=== PATIENT | male | born 1965 | race African-American/Black ===

== ENCOUNTER 2019-08-16 13:13 | Day surgery (SDC) ==
[2019-08-16] MEDS ORDERED: KEFZOL 1 GM/D5W 2 GM/100 ML IVPB ONE (13:45)
[2019-08-16] MEDS ORDERED: LR 1,000 ML ONE ×2 (13:45→18:28)
[2019-08-16] MEDS ORDERED: NEO SYNEPHRINE INJ ONE (14:20)
[2019-08-16] MEDS ORDERED: SODIUM CHLORIDE 0.9% INJ ONE (14:20)
[2019-08-16] MEDS ORDERED: DIPRIVAN 1% ONE (15:54)
[2019-08-16] MEDS ORDERED: XYLOCAINE-MPF 2% ONE (15:54)
[2019-08-16] MEDS ORDERED: ROBINUL ONE ×2 (15:54→16:47)
[2019-08-16] MEDS ORDERED: XYLOCAINE 1% ONE (16:00)
[2019-08-16] MEDS ORDERED: APRESOLINE ONE ×2 (16:27→18:18)
[2019-08-16] MEDS ORDERED: LABETALOL ONE (17:32)
[2019-08-16] MEDS ORDERED: DILAUDID ONE (17:35)
[2019-08-16] MEDS ORDERED: NORCO-7.5 ONE (17:49)
[2019-08-16] MEDS ORDERED: APRESOLINE IV PRN (18:20)
[2019-08-16] MEDS ORDERED: LABETALOL IV PRN (19:00)
[2019-08-16] MEDS ORDERED: ZOFRAN IV PRN (19:00)
[2019-08-16 22:16] LABS: BASO# 0.02 X1000 (0.0-0.2); BASO% 0.2 % (0.0-0.8); EOS# 0.07 X1000 (0.0-0.7); EOS% 0.6 % (0.0-10.0); HEMATOCRIT 41.9 % (42.0-52.0); HEMOGLOBIN 13.8 g/dL (14.0-18.0); IMM GRAN# 0.02 X1000 (0.0-0.04); IMM GRAN% 0.2 % (0.0-0.5); LYMPH# 0.62 X1000 (1.2-3.4); LYMPH% 5.6 % (20.5-51.1); MCHC 32.9 g/dL (33-37); MCV 85.2 FL (81-99); MONO% 6.3 % (1.7-9.3); MPV 9.6 FL (7.4-10.4); NEUT# 9.65 X1000 (1.4-6.5); NEUT% 87.1 % (42.2-75.2); PLT 240 X1000 (130-400); RBC 4.92 XMIL (4.7-6.1); RDW 12.5 % (11.5-14.5); WBC 11.08 X1000 (4.8-10.8)
[2019-08-16 22:32] LABS: AGAP 14; ALB/GLOB RATIO 1.3; ALBUMIN 3.9 g/dL (3.5-5.0); ALKALINE PHOSPHATASE 99 U/L (32-122); BUN 11 mg/dL (8-22); CHLORIDE 102 mmol/L (98-107); COSMO 280; CREATININE 1.1 mg/dL (0.7-1.2); ESTIMATED GFR > 60; GLUCOSE 92 mg/dL (70-104); GOT 22 U/L (10-34); GPT 22 U/L (10-44); POTASSIUM 3.6 mmol/L (3.5-5.1); SODIUM 141 mmol/L (136-145); TCO2 25 mmol/L (25-35); TOTAL BILIRUBIN 0.46 mg/dL (0.20-1.00); TOTAL PROTEIN 6.9 g/dL (6.3-8.3)
[2019-08-16 22:52] LABS: PROTIME 13.9 Seconds (11.0-16.0); PTT 25.2 Seconds (22.3-41.8)
[2019-08-16 22:53] LABS: INR 1.05
[2019-08-16 22:59] LABS: EOS 2 % (1-10); LYMPHS 4 % (21-51); MONO 6 % (1-9); SEGS 88 % (42-75)
[2019-08-16] MEDS: KEFZOL 1 GM/D5W 1 GM/50 ML IVPB IV SCH (23:15)
[2019-08-16] MEDS: COLACE PO SCH (23:15)
[2019-08-17] MEDS: NORCO-7.5 PO PRN (00:01)
[2019-08-17 01:45] LABS: URINE SOURCE CATH
[2019-08-17 01:50] LABS: BILIRUBIN URINE NEGATIVE (NEGATIVE); BLOOD URINE MODERATE (NEGATIVE); COLOR YELLOW; GLUCOSE URINE NEGATIVE (NEGATIVE); KETONE URINE TRACE mg/dL (NEGATIVE); LEUKOCYTES URINE LARGE (NEGATIVE); NITRITE URINE NEGATIVE (NEGATIVE); PH URINE 6.5; PROTEIN URINE 70 mg/dL (NEGATIVE); SP GRAVITY URINE 1.025; TURBIDITY URINE HAZY (CLEAR); UROBILINOGEN URINE NORMAL (NORMAL)
[2019-08-17 02:21] LABS: UR EPITHELIAL CELLS <10 /HPF (<10); URINE BACTERIA NEGATIVE /HPF; URINE CASTS NONE SEEN; URINE CRYSTALS NONE SEEN; URINE RBC 20-40 /HPF (<10); URINE SMALL ROUND CELLS NONE SEEN; URINE WBC TNTC /HPF (<10); URINE YEAST NONE SEEN
[2019-08-17 07:09] LABS: HEMATOCRIT 38.7 % (42.0-52.0); HEMOGLOBIN 12.7 g/dL (14.0-18.0); MCH 28.3 PG (27-31); MCHC 32.8 g/dL (33-37); MCV 86.2 FL (81-99); MPV 10.1 FL (7.4-10.4); RBC 4.49 XMIL (4.7-6.1); RDW 12.7 % (11.5-14.5); WBC 8.04 X1000 (4.8-10.8)
[2019-08-17 07:35] LABS: AGAP 11; BUN 13 mg/dL (8-22); CALCIUM 8.5 mg/dL (8.8-10.2); CHLORIDE 102 mmol/L (98-107); COSMO 276; CREATININE 1.3 mg/dL (0.7-1.2); ESTIMATED GFR > 60; GLUCOSE 105 mg/dL (70-104); POTASSIUM 3.7 mmol/L (3.5-5.1); SODIUM 138 mmol/L (136-145); TCO2 25 mmol/L (25-35)
--- NOTE | 2019-08-17 07:42 | OPERATIVE NOTE ---
PROCEDURE DATE: 08/16/2019 PREOPERATIVE DIAGNOSES: 1. High-flow priapism. 2. History of urethral stricture. POSTOPERATIVE DIAGNOSES: 1. High-flow priapism. 2. History of urethral stricture. PROCEDURE PERFORMED: 1. Urethroscopy. 2. Irrigation and drainage of priapism. 3. Irrigation of phenylephrine. SURGEON: Yunior Rojas MD. ELIGIBILITY COUNSELOR: None. COMPLICATIONS: None. BLOOD LOSS: 30 mL. DRAINS: None. SPECIMENS REMOVED: Arterial blood gas. ANESTHESIA: LMA. INDICATIONS FOR PROCEDURE: Mr. Jiménez is a 53-year-old who presented to [facility] with a history of urethral stricture disease. The patient was taken to the operating room on 08/04/2019 for cystoscopy and attempted direct vision internal urethrotomy. The patient had a bulbar urethral stricture and several cuts of the urethrotome performed. However, the stricture was too obliterated and underwent suprapubic tube placement. The patient had significant bleeding from his urethra postoperatively, and was seen in [facility], and this has subsequently resolved. He was seen in the office last week and was doing well at that time. Last Thursday though, he began having swelling of his penis without pain. This persisted throughout the weekend and he presented to the office yesterday with evidence of priapism. There was no tenderness to palpation. He was sent for a penile ultrasound which showed good arterial flow and good superficial venous flow. There was slight delayed deep vein flow. I talked to him at that time regarding performing an ABG and possible drainage of priapism. The patient was without any pain, and from his symptoms, it sounded like he had high-flow priapism. I recommended obtaining an ABG, and injected phenylephrine and trying to do irrigation and drainage of his priapism. I told him that with his history of likely high-flow, the irrigation drainage would not completely alleviate it, and that if it persists, we may have to consider embolization. Discussed with him the role of cystoscopy to evaluate the urethra, and see if there is any active bleeding present. Discussed risks including bleeding, infection, damage to surrounding structures, prolonged erectile dysfunction related to prolonged priapism as well as drainage. After thorough discussion of the risks, benefits, and alternatives, patient elected to proceed. DESCRIPTION OF PROCEDURE: After informed consent was obtained, the patient was brought to the operating room, and placed on the operating table in supine position. The patient received preoperative antibiotics and underwent LMA placement. He was shaved, and then prepped and draped in usual sterile fashion. A preoperative time-out was performed with all parties in agreement, including anesthesia, surgical, and nursing staff. At which point using a flexible cystourethroscope inserted through the urethra which showed a normal urethra until what appeared to be the bulbar urethra. No significant trauma was seen within the urethra. No active bleeding was seen. It seemed like the stricture remained significantly unchanged from prior evaluation. At which point the cystourethroscope was removed, and no active bleeding was seen. The patient had a slight decrease in the firmness of his penis after induction of anesthesia. His blood pressure at that time was 130/78. He continued to have firm corpora, but it seemed to be less firm. Gave him a penile block at the base of the penis. Next, used ABG needle and placed into the base of the left penis. Send this for ABG, which returned with a pH of 7.358, pCO2 of 48.2, PO2 of 99, base excess of 2, bicarbonate of 27.1, and oxygen saturation of 97% showing evidence of normal arterial flow and high-flow priapism. I did drain some blood through an 18-gauge needle, and the patient's penis became rapidly flaccid. I injected a small amount of phenylephrine starting with 1 mL increments using concentration of 100 mcg/mL, and injected 3 total mL of phenylephrine over a 15 minute period. The patient's penis remained flaccid. I removed the needle, and no active bleeding was seen after holding pressure for several minutes. The patient was monitored for 10 minutes in the operating room with no return of his priapism. A dressing was then placed using Kerlix and Coban for a small pressure dressing. This was used lightly to allow for any postoperative edema and swelling. The patient was then transferred to recovery room in stable condition. DISPOSITION: Patient will be monitored overnight. I think some of his high- flow priapism is related to hypertension. He was taking lisinopril and hydrochlorothiazide, within a week of the priapism starting. I am concerned this may have led to some of his symptoms. We will consult the hospitalist for assistance in monitoring his blood pressure, and optimization of medical management as he has new onset of hypertension, which I think is leading to his current episode of priapism. Blood pressure in recovery was 165/125 postoperatively, and no obvious erection was seen 20 minute after the procedure was completed. cc: Yunior Rojas MD MTDDario
[2019-08-17] MEDS: LR 1,000 ML IV SCH ×2 (08:02→23:20)
[2019-08-17] MEDS: PERIDEX MT SCH ×2 (08:03→20:22)
[2019-08-17] MEDS: COLACE PO SCH ×2 (08:03→20:22)
[2019-08-17] MEDS: KEFZOL 1 GM/D5W 1 GM/50 ML IVPB IV SCH ×2 (08:03→17:25)
--- NOTE | 2019-08-17 10:21 | Diag Imaging Result Doc PS360 ---
EXAM: CT ABDOMEN/PELVIS W/O CONTRAST INDICATION: Uncontrolled hypertension TECHNIQUE: This exam was performed using automated exposure control, adjustment of mA or kV according to patient size, and/or use of iterative reconstruction technique. COMPARISON: None. FINDINGS: There is mild subsegmental atelectasis at the lung bases. The gallbladder, liver, spleen, pancreas, adrenal and adrenal glands are grossly unremarkable. There are no renal or ureteral stones and there is no hydronephrosis. The kidneys are grossly unremarkable, otherwise. There is a suprapubic Mann catheter in the urinary bladder. The bladder is largely nondistended. There is urinary bladder wall thickening. This is probably due to incomplete distention and chronic thickening due to the indwelling catheter. Correlate clinically to exclude a component of acute cystitis. The appendix is normal. No bowel wall thickening or bowel obstruction is identified. The stomach is very distended containing fluid and debris. This is nonspecific. Consider delayed gastric emptying. The remainder of the GI tract is grossly unremarkable. There is a small umbilical hernia that contains only fat. No free abdominal gas or free fluid is appreciated. IMPRESSION: 1.Thickened urinary bladder wall that is probably due to nondistention and chronic thickening from the indwelling suprapubic catheter. Correlate clinically to exclude a component of cystitis. 2.Distended stomach containing fluid and debris, nonspecific. Consider delayed gastric emptying. 3.Other incidental/nonacute findings detailed above. Electronically signed by Eliazar Paiz 08/17/2019 10:18 AM
--- NOTE | 2019-08-17 11:40 | Diag Imaging Result Doc PS360 ---
EXAM: CHEST-PORTABLE HISTORY: Fine Crackles RLL TECHNIQUE: Single view COMPARISON: None. FINDINGS: The lungs are well expanded. The heart is not enlarged. The vessels are not distended. There are no infiltrates. No effusion identified. IMPRESSION: No pneumonia Electronically signed by Ivan Hooker 08/17/2019 11:38 AM
--- NOTE | 2019-08-17 11:42 | Diag Imaging Result Doc PS360 ---
EXAM: CERVICAL SPINE COMPLETE HISTORY: Neck Pain,Right Arm Numbness TECHNIQUE: AP and lateral with obliques, six views COMPARISON: None. FINDINGS: There is reversal of the normal curvature. Prominent degenerative bone spurs in the mid cervical spine with disc space narrowing with. No precervical soft tissue swelling. IMPRESSION: Reversal of the normal curvature with prominent degenerative changes in the mid cervical spine. Electronically signed by Ivan Hooker 08/17/2019 11:39 AM
--- NOTE | 2019-08-17 12:10 | PROGRESS NOTE ---
DATE: 08/17/2019 SUBJECTIVE: Postoperative day 1 from cystoscopy, irrigation and drainage of priapism with injection of phenylephrine. The patient has been doing well. He denies any penile pain. He remains afebrile. His blood pressures have been better controlled since admission. The patient is currently on IV labetalol and hydralazine. Nursing says they did not have to give him any overnight as his blood pressures were below parameters. The patient had a high-flow priapism yesterday and improved with blood pressure control. The patient continues to have a partial erection this morning. Denies any penile pain. He does feel like it has gotten slightly better since yesterday. PHYSICAL EXAMINATION: Vital Signs: Temperature 97.4 degrees, heart rate 63, blood pressure 131/86, oxygen saturation 100% on room air. General: No acute distress. Resting comfortably in bed. Alert and oriented x3. Respiratory: Good respiratory effort without audible wheezing or rales. : No suprapubic tenderness. Suprapubic tube in place, draining clear urine. No evidence of any scrotal edema. The patient has a partial erection, approximately 50%. Firm corpora that are nontender to palpation. The patient seems to have had improvement in priapism since yesterday. Denies any urethral bleeding. LABS: White blood cell count 8.0, hemoglobin 12.7, hematocrit 38.7, platelets 217,000. Sodium 138, potassium 3.7, chloride 102, bicarb 25, creatinine 1.3, glucose 105, calcium 8.5. ASSESSMENT AND PLAN: Mr. Jiménez is a 53-year-old who has a history of urethral stricture disease, is status post attempted direct vision internal urethrotomy on 08/04/2019, and placement of a suprapubic tube. The patient has had good drainage from the suprapubic tube catheter. The patient developed priapism last Thursday. He presented to clinic on Thursday with symptoms. He was denying any penile pain and only felt like he had some penile swelling. The patient has undergone a penile Doppler which showed good arterial blood supply with superficial venous drainage, with concern for a slow deep vein drainage. The patient was taken to the operating room yesterday for irrigation of priapism, phenylephrine injection, with cystoscopy. The patient's ABG showed good blood supply with oxygenation at 99% and a normal CO2. The patient seems to have evidence of a high-flow priapism. The patient's priapism improved with blood pressure control yesterday in the operating room and to continues to improve with better blood pressure control. I think some of this is related to elevated systolic and diastolic blood pressures. The patient has a hospitalist consult placed and they are evaluating him. The patient likely needs to be on blood pressure medications. I think this developed partly due to the lisinopril that he was taking previously. We will ask them to discuss possible options for blood pressure management. We will obtain a CT scan this morning to assess for any internal compression leading to hypertension and the priapism. Continue PO pain medications. cc: MD Tino Roberts MD MTDD
--- NOTE | 2019-08-17 16:45 | EKG Report ---
Test Performed on : 08/17/2019 4:34:15 PM Test Reason : HTN/chest pain Blood Pressure : / mmHG Vent. Rate : 070 BPM Atrial Rate : 070 BPM P-R Int : 240 ms QRS Dur : 092 ms QT Int : 372 ms P-R-T Axes : 028 -34 016 degrees QTc Int : 401 ms Sinus rhythm. with 1st degree AV block. Left axis deviation Pulmonary disease pattern Abnormal ECG No previous ECGs available Confirmed by Alexi MARCUS, Yung ([id number]) on 08/18/2019 8:36:07 AM
[2019-08-17] MEDS: NORVASC PO SCH (20:22)
--- NOTE | 2019-08-17 21:53 | CONSULTATION ---
DATE OF CONSULTATION: 08/17/2019 at 0530. PRIMARY CARE: Patient does not have a primary care provider. UROLOGIST: Dr. Rojas. REQUESTING PHYSICIAN: Dr. Rojas. REASON FOR CONSULT: Uncontrolled hypertension. HISTORY OF PRESENT ILLNESS: Mr. Oscar Jiménez is a 53-year-old male who has a past medical history most notable for hypertension, medullary sponge kidney, and urethral strictures. He did recently, on 08/04/2019, undergo a cystoscopy with attempted direct-vision internal urethrotomy and placement of a suprapubic catheter. He has, from what I understand, had some problems with urethral bleeding since that procedure. Yesterday, the patient did present to Dr. Rojas's office with complaints of priapism. Secondary to this, Dr. Rojas did take the patient to surgery for urethroscopy, irrigation and drainage of priapism, and irrigation of phenylephrine for high-flow priapism. Dr. Rojas did believe that this priapism could be secondary to uncontrolled hypertension. The patient states that a few months ago, he was given a prescription for lisinopril/hydrochlorothiazide, a blood pressure medication. He states he took this for a while, though his blood pressure did not improve. He stated prior to taking blood pressure medicine, his blood pressure continuously ran in the 180s systolically and the 120s diastolically. He states even with taking that blood pressure medicine, his blood pressure continued to stay the same, and when he began having the priapism, he thought that the blood pressure medicine might be causing this, so he stopped taking it. So far, since being admitted, his blood pressure at the highest had been 173/105, though he has received p.r.n. blood pressure medications of hydralazine and labetalol, and since that time his blood pressure has improved. The patient also reports that he has had neck pain for quite some time. He denies any known injury or any recent injury to his neck. He states that for a long time as well, he has had intermittent numbness in his right arm from the level of the shoulder down. He stated that when he turned his neck in certain directions, the numbness would get worse and improve, though he states now that his right arm stays numb almost continuously. He still has good muscle control. It is just the numbness that he is reporting. At this time, the only pain the patient is reporting is the pain in his lower abdomen in the suprapubic area. He just recently has had urological procedure performed. He denies any headache, dizziness, chest pain, shortness of breath, or cough. He denies any nausea, vomiting, or diarrhea. He denies any pain, numbness, tingling, or swelling in the extremities except for the previously mentioned right arm numbness that he has been reporting. The patient also did report that he does not have a primary care provider, and would like assistance with this if possible. REVIEW OF SYSTEMS: A 14 point review of systems was conducted with the patient and all were negative except for the pertinent positives mentioned above in HPI. PAST MEDICAL HISTORY: 1. Hypertension. 2. Medullary sponge kidney. 3. Priapism. 4. History of urethral stricture, status post cystoscopy and now suprapubic catheter placement just recently on 08/04/2019. 5. History of urinary retention. PAST SURGICAL HISTORY: 1. Cystoscopy with attempted direct-vision internal urethrotomy and suprapubic catheter placement on 08/04/2019. 2. Status post recent urethroscopy with irrigation and drainage of priapism and irrigation of phenylephrine by Dr. Rojas for treatment of a high-flow priapism and history of urethral stricture, on 08/16/2019. SOCIAL HISTORY: Patient denies any tobacco, alcohol, or illicit drug use. FAMILY HISTORY: Positive for asthma, hypertension, stroke, arthritis, diabetes mellitus, lupus, and prostate cancer. ALLERGIES: Patient reports allergies to iodinated contrast dye and iodine, stating it causes him to have nausea and vomiting. HOME MEDICATIONS: The patient reports that he has stopped taking his prescription, though previously up until a few days ago, he was taking blood pressure medication of lisinopril- hydrochlorothiazide 10-12.5 mg tablets. DIAGNOSTIC DATA: White blood cell count is 11,080, hemoglobin 13.8, hematocrit is 41.9, platelet count is 240,000. PT 13.9, INR 1.05, PTT is 25.2. Sodium 141, potassium 3.6, chloride 102, serum bicarb is 25, BUN 11, creatinine 1.1 with GFR greater than 60, glucose 92, calcium 9. Liver function tests are within normal limits. Urinalysis was obtained via catheter and was positive for protein, ketones, moderate blood, large leukocytes, too numerous to count white blood cells. It was negative for glucose, nitrites, bilirubin, or bacteria. CT abdomen and pelvis without contrast did show a thickened urinary bladder wall that is probably due to nondistention and chronic thickening from the indwelling suprapubic catheter. It was noted to correlate clinically to exclude component of cystitis. He was also noted to have a distended stomach containing fluid and debris that is nonspecific. Considerations could be delayed gastric emptying. Please see full CT report for all detailed findings. Pending diagnostic studies at this time are repeat CBC and BMP, as well as a portable chest x-ray and C-spine x-ray. PHYSICAL EXAMINATION: Vital Signs: Temperature 98.1 degrees, heart rate 72, respirations 20, blood pressure is 125/74, oxygen saturation is 95% on room air. General: Mr. Jiménez is a very pleasant, 53-year-old male who is resting in the inpatient bed. He was in no acute distress. He was awake, alert, and able to answer questions appropriately. HEENT: Head is atraumatic, normocephalic. Pupils are equal, round, reactive to light, were 3 mm bilaterally and brisk. Oral mucosa is moist. Oropharynx is clear. Neck: Supple. Trachea midline. Cardiovascular: Patient has S1, S2 present. No murmurs, gallops, rubs appreciated, with a regular rate and rhythm. Pulmonary: Patient has symmetrical chest expansion bilaterally. Lung sounds are clear in all arguelles except for the patient did have some very fine crackles noted in the right lower lung field. Abdomen: Soft. Does not appear to be distended, though he does have a slightly protuberant abdomen noted. He was tender in the suprapubic area upon palpation. Bowel sounds are present in all 4 quadrants, and were normoactive. Extremities: No cyanosis or edema noted. Pulse, motor, and sensory were intact in all extremities. Radial and pedal pulses were 2+ bilaterally. Integumentary: The patient's skin color is normal for his race, is dry and intact. Neurological: Patient is alert and oriented to person, place, time, and situation. He is able to move all extremities. He is reporting some numbness in his right arm from the shoulder level down, though he states this is not of new onset and has been ongoing for quite some time. He states that instead of it being intermittent, it is more constant now. Though other than this, there are no other focal neurological deficits noted. ASSESSMENT AND PLAN: 1. History of urethral stricture, status post recent cystoscopy and placement of a suprapubic catheter. 2. Status post urethroscopy, irrigation and drainage of priapism, and irrigation with phenylephrine by Dr. Rojas for treatment of high-flow priapism and a history of urethral stricture. For numbers 1 and 2, Dr. Rojas is managing this. We will follow along and follow his recommendations. 3. Uncontrolled hypertension. The patient was previously taking lisinopril- hydrochlorothiazide, though he states that even when taking this medicine, his blood pressure was still elevated in the 180s systolic and the 120s diastolic. He has had p.r.n. blood pressure medications of labetalol and hydralazine. At this time, his blood pressure is much improved with the last reading of 125/74 with a mean arterial pressure of 84. The patient will need to be placed on blood pressure medication for his hypertension prior to discharge. We will continue to follow. 4. Complaints of long-standing neck pain with right arm numbness from the level of the shoulder down, which he states was previously intermittent, though is now more constant. He denies any other neurological symptoms. We are going to order a C-spine x-ray. We will await these results and continue to follow. The patient has been placed on the medical floor with telemetry. He will have vital signs every 4 hours. We will do strict intake and output. He will be on a regular diet. We have placed a social science teacher consult for assistance with him finding a primary care provider. Also, the patient did have some fine crackles noted in the right lung base. We have ordered a chest x-ray. We will also implement incentive spirometry and encouragement of frequent turn and cough and deep breathing every 2 hours. Further orders and recommendations pending hospital course, diagnostic studies, and physician evaluation. Dictated by JESUS Cross for Dat Sy MD I have performed a face to face diagnostic evaluation. Labs/ Xray- reviewed, Exam- Chest- clear, CV- regular. A/P- s/p cystoscopy, Priapism, HTN- Admit , NPO, urology consult, Antihypertensive agent. Dr. Sy cc: MD Tino Singh MD [facility]
--- NOTE | 2019-08-17 22:47 | PROGRESS NOTE ---
DATE: 08/17/2019 SUBJECTIVE: Today, Mr. Jiménez refers to be doing well. He underwent ureteroscopy, irrigation and drainage of priapism, and irrigation of phenylephrine yesterday with Dr. Rojas. We have been consulted because of elevated blood pressure. Mr. Jiménez refers that he has trouble with blood pressure issues, but has not been very consistent with any medications before. He was on lisinopril at some point, but according to him, that was not even controlling the blood pressure. Dr. Rojas has concern that the CORNELIO inhibitors very rarely can cause some form of penal edema, so if any possible, that should be avoided. OBJECTIVE: Current vitals: Blood pressure is 144/82. Pulse of 74. Respiration is 18. Temperature is 98.3 degrees. General: Mr. Jiménez is a 53-year-old, - [place] gentleman. He is in bed, in no distress. Mucosa is pink and moist. Anicteric. Acyanotic. Neck: Supple. Chest: Clear to auscultation. No crepitations. No rhonchi. Cardiovascular: Regular rate and rhythm. There are no murmurs. No rubs. No gallops. Gastrointestinal: Abdomen is soft. Bowel sounds are present. There is a suprapubic catheter in place and it seems to be draining well. Extremities: No pedal edema. Central nervous system: Patient is awake, alert, and oriented. LABORATORY DATA: Hemoglobin is 12.7. Rest of CBC is unremarkable. Creatinine is 1.3. Rest of chemistry is also unremarkable. ASSESSMENT/PLAN: 1. High flow priapism. The patient is status post ureteroscopy, irrigation and drainage of priapism by Dr. Rojas. He seems to be doing relatively well. 2. Uncontrolled hypertension. Mr. Jiménez is known to be hypertensive. He tried lisinopril before, which according to him did not work. Blood pressure has significantly improved during the hospital course. However, he still remains in the upper limits. We are going to start him on amlodipine 5 mg b.i.d. for now, and adjust the dose or add another agent as needed. We will get an EKG to rule out any longstanding hypertensive effect on the heart. We will also get the lipid panel tomorrow morning. 3. Obesity with body mass index of 30. The patient has been advised on weight management. 4. Acute kidney injury. The patient is currently on IV fluids. We will repeat his renal function test tomorrow morning. In general, I think Mr. Jiménez seems to be stable. He is currently asymptomatic. He is doing well. We are going to get an EKG. We will also get a lipid panel. We started him on amlodipine and we will re-evaluate him tomorrow morning. cc: Tino Castaneda MD MTDD
[2019-08-18] MEDS: NORCO-7.5 PO PRN ×2 (01:24→08:23)
[2019-08-18 07:41] LABS: AGAP 13; ALBUMIN 3.9 g/dL (3.5-5.0); BUN 13 mg/dL (8-22); CHLORIDE 105 mmol/L (98-107); CHOLESTEROL 184 mg/dL (0-200); COSMO 283; CREATININE 1.1 mg/dL (0.7-1.2); ESTIMATED GFR > 60; GLUCOSE 94 mg/dL (70-104); HDL 67 mg/dL (35-55); LDL 109 mg/dL; PHOSPHORUS 3.1 mg/dL (2.7-4.5); POTASSIUM 4.1 mmol/L (3.5-5.1); SODIUM 142 mmol/L (136-145); TCO2 24 mmol/L (25-35); TRIGLYCERIDES 38 mg/dL (39-160); VLDL 8 mg/dL
[2019-08-18] MEDS ORDERED: ROCEPHIN 1 GM in NS 50 ML IV SCH (08:00)
[2019-08-18] MEDS: PERIDEX MT SCH (08:16)
[2019-08-18] MEDS: NORVASC PO SCH (08:16)
[2019-08-18] MEDS: COLACE PO SCH (08:19)
[2019-08-18] MEDS ORDERED: ALDACTONE PO SCH (09:00)
[2019-08-18] MEDS ORDERED: COREG PO SCH (09:00)
[2019-08-18 09:22] LABS: I-STAT BE 2 mmoll (-2-3); I-STAT GLUCOSE 96 mg/dL (70-105); I-STAT HEMOGLOBIN 12.6 g/dL (11.5-17.5); I-STAT K 3.7 mmoll (3.5-4.9); I-STAT SODIUM 140 mmoll (138-146); I-STAT TCO2 29 mmoll (23-27); I-STAT pH 7.358 (7.350-7.450)
[2019-08-18] MEDS ORDERED: LEVAQUIN PO ONE (10:22)
--- NOTE | 2019-08-18 10:56 | PROGRESS NOTE ---
DATE: 08/18/2019 SUBJECTIVE: The patient had an episode of elevated blood pressure overnight and began having pain within the penis. He received pain medication and blood pressure control, and denies any pain this morning. He states that his blood pressure increased and then the priapism worsened. He denies chest pain, shortness of breath, or headache today. His suprapubic tube has been draining well with 4850 drained out. OBJECTIVE: Vital Signs: Temperature 98.2, heart rate 71, blood pressure 164/99, oxygen saturation 98% on room air. General: No acute distress. Resting comfortably in bed. Alert and oriented x3. Respiratory: Good respiratory effort without audible wheezing or rales. Abdomen: Soft, nontender, nondistended. : No suprapubic tenderness. Suprapubic tube in place draining clear yellow urine. The patient has evidence of priapism which is nontender to palpation. The corpora are rigid. It seems to be relatively stable from yesterday morning. No significant penile elongation, just firm corpora with no tenderness to palpation. Musculoskeletal: Moving all extremities. Laboratory Data: Sodium 142, potassium 4.1, chloride 105, bicarb 24, BUN 13, creatinine 1.1, glucose 94, calcium 9.0. Triglycerides 38, cholesterol 184, LDL 109, HDL 67. Urine culture growing gram-negative rods. ASSESSMENT AND PLAN: Mr. Jiménez is a 53-year-old who underwent irrigation and drainage with phenylephrine injection and cystoscopy on 08/16/2019. ABG was performed which showed a high-flow priapism with well oxygenated blood and low CO2. The patient had an episode of penile pain overnight after his blood pressure increased. Blood pressure remains elevated this morning at 164. He denies any penile pain today. No penile bruising is seen on exam. The patient continues to have rigid corpora that are nontender to palpation. The patient was started on blood pressure medications by the hospitalist yesterday with amlodipine 5 mg twice a day. Blood pressures continue to be elevated. I talked with Dr. Castaneda yesterday who offered recommendations. Patient had an EKG and a lipid panel today. Renal function returned back to normal at 1.1 from 1.3 yesterday. The patient clinically seems to be stable. I think patient will continue with high-flow priapism. I discussed with him the role of angiography and possible embolization. The patient currently is having minimal pain. I told him if his priapism persisted or he developed worsening pain, may have to consider embolization for this process. I told him that in about half of patients, this will resolve spontaneously. I think with better blood pressure control, it should resolve as well. We will continue to monitor clinically. cc: MD Tino Roberts MD MTDD
[2019-08-18 11:38] VITALS: BP 154/107
--- NOTE | 2019-08-19 20:48 | DISCHARGE SUMMARY ---
ADMISSION DATE: 08/16/2019 DISCHARGE DATE: 08/18/2019 DISPOSITION: Home. FOLLOWUP: Will be Dr. Rojas. CONSULTATION DURING THIS ADMISSION: We were actually consulted. The patient was electively admitted by Dr. Rojas. DIAGNOSES AT ADMISSION: 1. History of urethral stricture status post recent cystoscopy and placement of suprapubic catheter. 2. Status post ureteroscopy, irrigation and drainage of priapism. 3. Uncontrolled hypertension. DIAGNOSES AT TIME OF DISCHARGE: 1. High-flow priapism. The patient is status post ureteroscopy, irrigation and drainage of priapism by Dr. Rojas. 2. Uncontrolled hypertension. 3. Obesity with body mass index (BMI) of 30. 4. Acute kidney injury, improved. 5. Gram-negative rashawn urinary tract infection (UTI). DISCHARGE MEDICATIONS: 1. Spironolactone 25 mg p.o. daily. 2. Carvedilol 12.5 mg p.o. daily. 3. Levaquin 500 p.o. daily. 4. Colace 100 mg b.i.d. 5. Amlodipine 10 mg p.o. daily. REASON FOR CONSULT: Uncontrolled hypertension. HISTORY OF PRESENTING COMPLAINT: Mr. Jiménez is a 53-year-old male who has history of hypertension, medullary sponge kidney, multiple ureteral strictures status post urological interventions, presented after he underwent urological intervention with Dr. Rojas for priapism. He was found to have extremely high blood pressure. He is known to have hypertension, but not very compliant with his medication. He was admitted after the procedure for better blood pressure control. We were consulted for that. HOSPITAL COURSE: Mr. Jiménez was admitted to the surgical floor after the procedure. He was started on multiple oral medications, which progressively got his blood pressure a lot better than on admission. We think, as he gets used to the medication, the blood pressures will be better. He is supposed to get a primary care doctor locally to monitor and follow up on his blood pressure management. This morning, he feels a lot better. His vitals, blood pressures were 154/107, pulse is 71, respirations is 16, temperature is 98.3 degrees. His urine did show gram-negative rashawn, which the ID and sensitivity was not in at the time of the discharge. He has been started on Levaquin and he has been advised to follow up with this with Dr. Rojas. All the discharge instructions were discussed with him and he voiced understanding. TIME SPENT FOR DISCHARGE: 35 minutes. cc: Dr. Bob Castaneda MD
== END 2019-08-18 13:50 | disposition home or self-care (01) ==
LOC: OR 13:13 → 4N 13:13 → OR 08-18 13:50
PROVIDERS: ATTEND Urology